=== PATIENT | female | born 1955 | race Caucasian/White ===

== ENCOUNTER 2018-06-02 09:14 | Inpatient (IN) | payer BC ==
[~2018-06-02] VITALS: Ht 162.6 cm; Wt 60.6 kg
--- NOTE | 2018-06-02 09:24 | NUR ---
PT BIB [facility] C/C RT KNEE PAIN S/P MECHANICAL FALL PLUMBER APPRENTICE PER MEDIC TRIPPED OVER HER LT FOOT PT HX OF RT BKA AWAITING FOR DR NANNETTE MCCARTNEY
--- NOTE | 2018-06-02 09:51 | NUR ---
PLEASE ENTER FULL NAMES OF GEOMETRY TEACHER/RN Patient data collected by (GEOMETRY TEACHER):LELA FARMER Assessment reviewed and completed by (RN):HOLLIS WOO
--- NOTE | 2018-06-02 10:09 | NUR ---
DR URIBE AT BEDSIDE TO BIB
--- NOTE | 2018-06-02 10:26 | NUR ---
TAKEN TO RADIOLOGY FOR XRAY
--- NOTE | 2018-06-02 10:58 | NUR ---
BACK FROM XRAY
[2018-06-02] MEDS ORDERED: NOVOLOG100 U/ML SC (12:16)
[2018-06-02] MEDS ORDERED: TRESIBA FL100 UNIT/1 SQ (12:17)
[2018-06-02 12:20] LABS: CALCIUM 8.2 mg/dL (8.5-10.1); CARBON DIOXIDE 27.9 mmol/L (21-32); POTASSIUM SERUM 4.2 mmol/L (3.5-5.1)
[2018-06-02 12:25] LABS: BILIRUBIN TOTAL 0.52 mg/dL (0.20-1.00); TOTAL PROTEIN, SERUM 6.8 g/dL (6.4-8.2)
[2018-06-02 12:28] LABS: ALBUMIN 3.2 g/dL (3.4-5.0)
[2018-06-02 12:31] LABS: BASOPHIL % 0.3 % (0-2); PLATELET COUNT 345 x10^3mcL (130-400); RED CELL DISTRIBUTION WIDTH 12.9 % (11.5-14.5)
--- NOTE | 2018-06-02 12:54 | NUR ---
PT ADMIT TO MS GAVE REPORT TO RASHEED ROOM 210W
[2018-06-02 13:09] LABS: CHOLESTEROL/HDL RATIO 2.5; MAGNESIUM 1.7 mg/dL (1.8-2.4); PHOSPHOROUS 4.5 mg/dL (2.5-4.9)
--- NOTE | 2018-06-02 13:28 | NUR ---
PATIENT ARRIVED TO FLOOR ON [facility] ACCOMPANIED BY MEDICAL LAB TECH INSTRUCTOR. PATIENT A/OX4, COMPLAINS OF 10/10 PAIN UPON MOVEMENT D/T RT FEMUR FX. NO PAIN WHEN RESTED. INSTRUCTED PATIENT ON USE OF CALL LIGHT TO CALL FOR STAFF. WILL ADMINISTER PRN ANALGESICS ONCE ORDERS COMPLETE, WILL ALSO NOTIFY DR MCCLAIN ABOUT POSSIBLE KUMAR INSERTION PATIENT HAS FEMUR FRACTURE.
[2018-06-02 13:29] LABS: T3 TOTAL 0.96 ng/mL
[2018-06-02 13:30] VITALS: BP 114/52
--- NOTE | 2018-06-02 13:37 | NUR ---
RECEIVED PT FROM ED VIA SAMMIE. ORIENTED PT TO ROOM AND SURROUNDINGS. IV NOTED TO RAC PATENT AND INTACT. INSTRUCTED PT ON THE USE OF CALL LIGHT FOR ASSISTANCE. ENDORSED PT TO PRIMARY NURSE RASHEED
--- NOTE | 2018-06-02 15:31 | NUR ---
ORDER TO PLACE A KUMAR IN. EXPLAINED TO PT THE PROCEDURE AND VERBALIZED UNDERSTANDING. KUMAR CATH PLACED IN ASEPTIC TECHNIQUE AND PT HAD TOLERATED PROCEDURE WELL.
--- NOTE | 2018-06-02 15:40 | NUR ---
PATIENT IN BED RESTING. PRN MORPHINE 2 MG IVP GIVEN TO PATIENT FOR HIP PAIN. KUMAR CATHETHER 10 HEBREW INSERTED, SERGEY URINE DRAINING. PRN NORCO PO GIVEN POST FC INSERTION. WILL CONTINUE TO MONITOR FOR PAIN. CALL LIGHT IN REACH, BED IN LOWEST POSITION.
[2018-06-02 16:40] LABS: microscopic required? YES; urine erythrocyte NEGATIVE (NEGATIVE)
[2018-06-02 16:48] LABS: AMPHETAMINE QUAL UR NONE DETECTED (See below)
--- NOTE | 2018-06-02 16:54 | NUR ---
PATIENT HAD X1 EPISODE OF VOMITTING. PRN ZOFRAN IVP GIVEN TO PATIENT. DR SAEED IN TO SPEAK W PATIENT ABOUT SURGERY TOMORROW AT 0900. PATIENT AGREES AND VERBALIZES UNDERSTANDING. CALL LIGHT IN REACH.
[2018-06-02 17:11] LABS: FREE T4 1.05 ng/dL (0.76-1.46); FREE THYROXINE INDEX 2.6 ug/dL (1.4-4.5); T4(THYROXINE) 7.5 ug/dL (4.7-13.3)
[2018-06-02 17:32] VITALS: BP 102/50
--- NOTE | 2018-06-02 18:35 | NUR ---
PATIENT HAD NO FURTHER EPISODES OF VOMITTING. PATIENT PAIN CONTROLLED AT THIS TIME. WILL ENDORSE TOMORROWS PROCEDURE TO ONCOMING NURSE, WILL NEED TO HAVE PATIENT NPO FOR PROCEDURE & HAVE CONSENT SIGNED. CALL LIGHT IN REACH.
--- NOTE | 2018-06-02 19:55 | NUR ---
RECEIVED PT IN BED RESTING WITH EYES CLOSED, ALERT AND ORIENTED, DENIES HEADACHE OR DIZZINESS, BREATHING EVEN AND UNLABORED, PT DE-SATS ON ROOM AIR WITH SPO2:87%, APPLIED PT TO 2.5 L VIA NC WITH SPO2 > 95%, LUNG SOUNDS DIMINISHED, DENIES CHEST PAIN, IVF INFUSING WELL, PULSES PALPABLE, NO EDEMA NOTED TO LLE, RT BKA, ABD SOFT WITH ACTIVE BS, NO BM AT THIS TIME, KUMAR VIA GRAVITY DRAINING SERGEY COLOR URINE, NO DISTRESS NOTED, WILL KEEP TO MONITOR.
[2018-06-02 20:21] VITALS: BP 109/50
--- NOTE | 2018-06-02 22:46 | NUR ---
DR BRITO MADE AWARE OF THAT PT IS SCHEDULED FOR ORIF IN AM BUT NO ORDER TO OBTAIN THE CONSENT, PER DR BRITO THAT DR SAEED WILL ORDER TO OBTAIN THE CONSENT IN AM, HE WILL ORDER NPO AFTER MN FOR NOW.
--- NOTE | 2018-06-03 05:38 | NUR ---
PT ASLEEP BUT EASILY AROUSABLE, SLEPT MOST OF NIGHT, MEDICATED WITH MORPHINE VIA IVP X 2 FOR RT FEMUR PAIN WITH GOOD RELIEF, IVF INFUSING WELL, MORNING BLODD SUGAR- 159 MG/DL, HOLD RISS [address] BRITO DUE TO PT IS NPO AT THIS TIME, NO DISTRESS NOTED, WILL KEEP TO MONITOR.
[2018-06-03 06:20] VITALS: BP 118/43
[2018-06-03 06:24] LABS: CALCIUM 8.3 mg/dL (8.5-10.1); CARBON DIOXIDE 24.9 mmol/L (21-32); CHLORIDE SERUM 106 mmol/L (98-107); CREATININE SERUM 0.9 mg/dL (0.6-1.0); GFR1 > 60 mL/min; GLUCOSE SERUM 158 mg/dL (74-106); POTASSIUM SERUM 4.2 mmol/L (3.5-5.1); SODIUM SERUM 141 mmol/L (136-145)
[2018-06-03 06:26] LABS: BASOPHIL % 0.1 % (0-2); PLATELET COUNT 264 x10^3mcL (130-400); RED CELL DISTRIBUTION WIDTH 13.1 % (11.5-14.5)
--- NOTE | 2018-06-03 06:51 | NUR ---
REPORT GIVEN TO ANA, ALL QUESTIONS ANSWERED AND CONCERNS ADDRESSED, CHG BATH GIVEN.
--- NOTE | 2018-06-03 07:18 | NUR ---
BEDSIDE HANDOFF REPORT DONE WITH WHITNEY-RN, ALL QUESTIONS ANSWERED AND CONCERNS ADDRESSED.
[2018-06-03 07:28] VITALS: BP 130/46
--- NOTE | 2018-06-03 07:30 | NUR ---
RECEIVED PT FROM CASE ASSEMBLER. PT AWAKE, ALERT. A/OX4. PT ON 2.5L O2 WITH DIMINISHED LUNGS SOUNDS NOTED. NO RESP DISTRESS. IV ACCES RAC INFUSISN NS AT 10ML/HR. C/D/I. ACTIVE BOWEL SOUNDS NOTED, NO APPARENT ISSUES WITH ELIMINATION, PERIPHERAL PULSES PALPABLE, NO EDEMA NOTED. PT COMPLAINS OF PAIN TO RIGHT LEG, 7/10. PT STATES TOLERABLE UNLESS SHE MOVES. SURGERY SCHEDULED FOR 0900, CONSENT SIGNED. OPERATIVE LEG MARKED. PT HAS KUMAR CATH WITH DARK SERGEY URINE NOTED. SAFETY MEASURES IN PLACE, BED LOW AND LOCKED. CALL LIGHT WITHIN REACH.
--- NOTE | 2018-06-03 09:30 | NUR ---
PT OFF THE FLOOR FOR PROCEDURE AT THIS TIME.
--- NOTE | 2018-06-03 12:15 | NUR ---
PT BACK FROM SURGERY. AWAKE, ALERT A/OX4. PT ON 2.5 L NC WITH NO RESP DISTRESS NOTED. VSS. PT DENIES MUCH PAIN AT THIS TIME. 05/18. PT STATES THE PAIN IS "MUCH BETTER" SINCE THE SURGERY. KAILYN BANDAGE WITH BRACE TO RIGHT LOWER EXTREMITY. PT DENIES NUMBNESS OR TINGLING. PT INSTRUCTED TO USE THE CALL LIGHT FOR ASSISTANCE OR IF PAIN INCREASES. VERBALIZED UNDERSTANDING. SAFETY MAINTAINED.
[2018-06-03 12:33] VITALS: BP 119/51
[2018-06-03 14:33] VITALS: BP 121/47
--- NOTE | 2018-06-03 16:59 | NUR ---
PT COMPLAINING OF PAIN 6/10 IN RIGHT LEG. MORPHINE ADMINISTERED ORDERED PRN (SEE EMAR). WILL CONT TO MONITOR.
--- NOTE | 2018-06-03 17:44 | NUR ---
PT REPORTS RELIEF FROM PAIN 3/10 IN RIGHT LEG AFTER MORPHINE ADMINISTRATION. NO ACUTE DISTRESS NOTED AT THIS TIME. SAFETY MAINTAINED.
--- NOTE | 2018-06-03 18:16 | NUR ---
PT STABLE AT THIS TIME. NO ACUTE DISTRESS OR DISCOMFORT NOTED AT THIS TIME. ALL NEEDS TENDED TO THROUGHOUT SHIFT. WILL CONTINUE TO MONITOR AND ENDORSE CARE TO GUARD DANCE HALL. SAFETY MEASURES MAINTAINED.
--- NOTE | 2018-06-03 19:05 | NUR ---
REPORT RECIEVED FROM DAY SHIFT RN. PATIENT WAS SEEN AND IS RESTING COMFORTABLE IN BED. ON 2LNC. BREATHING EVEN AND UNLABORED. NO SOB OR RESP DISTRESS NOTED. DENIES PAIN. DENIES CHEST PAIN. IV TO THE RAC INFUSING WELL. PATENT AND INTACT. NO REDNESS OR SWELLING. RIGHT BKA. RIGHT BRACE NOTED WITH KAILYN WRAP S/P ORIF, CDI. TRAPEZE BAR IN PLACE, KMUAR CATHETER IN PLACE DRAINING SERGEY URINE BY GRAVITY. COMFORT AND SAFETY MEASURES MAINTAINED. BED IS LOCKED AND IN THE LOWEST POSITION. SIDE RAILS UP X2. COMFORT AND SAFETY MEASURES MAINTAINED. CALL LIGHT IS WITHIN REACH. WILL CONTINUE TO MONITOR.
[2018-06-03 21:00] VITALS: BP 126/47
--- NOTE | 2018-06-04 03:00 | NUR ---
PATIENT IS RESTING COMFORTABLE IN BED WITH EYES CLOSED AT THIS TIME. NO DISTRESS NOTED. BREATHING EVEN AND UNLABORED ON 2L NC. CALL LIGHT IS WITHIN REACH. WILL CONTINUE TO MONITOR.
--- NOTE | 2018-06-04 05:25 | NUR ---
PATIENT SLEPT IN LONG INTERVALS THROUGHOUT THE NIGHT. NO ACUTE/SIGNIFICANT CHANGES NOTED. NO C/O PAIN THROUGHOUT THE NIGHT. DENIES CHEST PAIN. BREATHING EVEN ON 2L NC. NO SOB OR RESP DISTRESS NOTED. IV TO THE RAC. PATENT AND INTACT. NO REDNESS OR SWELLING NOTED. ALL NEEDS AND CONCERNS ADDRESSED. ALL SAFETY MEASURES MAINTAINED. COMFORT MEASURES MAINTAINED. CALL LIGHT IS WITHIN REACH. WILL ENDORSE CARE TO DAY SHIFT RN.
[2018-06-04 05:28] VITALS: BP 122/45
[2018-06-04 06:36] LABS: BASOPHIL % 0.3 % (0-2); PLATELET COUNT 217 x10^3mcL (130-400); RED CELL DISTRIBUTION WIDTH 13.4 % (11.5-14.5)
[2018-06-04 07:02] LABS: CARBON DIOXIDE 25.1 mmol/L (21-32); CHLORIDE SERUM 104 mmol/L (98-107); CREATININE SERUM 0.9 mg/dL (0.6-1.0); GFR1 > 60 mL/min; GLUCOSE SERUM 240 mg/dL (74-106); POTASSIUM SERUM 4.4 mmol/L (3.5-5.1); SODIUM SERUM 138 mmol/L (136-145)
--- NOTE | 2018-06-04 07:35 | NUR ---
PATIENT RESTING IN BED, PT DENIES PAIN AT THIS TIME. NO ACUTE DISTRESS NOTED, ON 2L NC. KUMAR CATHETER DRAINING TO GRAVITY. WEAKNESS NOTED TO RLE, RIGHT BKA, WHEELCHAIR BOUND. TRAPEZE BAR IN PLACE. DRESSING NOTED TO RLE, DRESSING CDI. NS IV INFUSING TO RAC AT 10ML/HR, IV SITE CDI, NO REDDNESS, SWELLING OR PAIN NOTED. CALL LIGHT WITHIN REACH, BED IN LOW POSITION, FOR SAFETY PRECAUTION. WILL CONTINUE TOO MONITOR FOR CHANGES.
[2018-06-04 07:42] VITALS: BP 106/45
--- NOTE | 2018-06-04 08:21 | NUR ---
PATIENT C/O MOD PAIN 05/18 TO RIGHT EXTREMITY, MEDICATED PATIENT WITH NORCO PER PROTOCOL (SEE EMAR),AND REPOSITION PATIENT. WILL CONTINUE TO MONITOR AND MANAGE PATIENT PAIN. CALL LIGHT WITHIN REACH, BED IN LOW POSITION FOR SAFETY PRECAUTION.
--- NOTE | 2018-06-04 09:20 | NUR ---
PHYSICAL THERAPY AT BEDSIDE.
--- NOTE | 2018-06-04 12:23 | NUR ---
PATIENT C/O MOD PAIN TO RIGHT LOWER EXTREMITY, MEDICATED PATIENT WITH NORCO PER PROTOCOL (SEE EMAR). REPOSITION PATIENTS RLE FOR COMFORT. CALL LIGHT WITHIN REACH, BED IN LOW POSITION. WILL CONTINUE TO MONIOTR FOR CHANGES.
--- NOTE | 2018-06-04 14:25 | NUR ---
FAMILY AT BEDSIDE. NO ACUTE DISTRESS NOTED. PATIENT ON 2L NC, PATIENT DENIES SOB. DENIES PAIN AT THIS TIME. CALL LIGHT WITHIN REACH, BED IN LOW POSITION. WILL CONTINUE TO MONITOR PATIENT.
[2018-06-04 15:31] VITALS: BP 107/45
--- NOTE | 2018-06-04 17:50 | NUR ---
PATIENT RESTING IN BED, NO ACUTE DISTRESS NOTED. PATIENT DENIES PAIN AT THIS TIME. NO SOB NOTED PATIENT ON 2L NC. KUMAR CATHETER DRAINING TO GRAVITY. DRESSING TO RLE CDI, NO DRAINAGE NOTED. NS IV INFUSING TO RAC AT 10ML/HR. CALL LIGHT WITHIN REACH, BED IN LOW POSITION. WILL CONTINUE TO MONITOR PATIENT.
--- NOTE | 2018-06-04 19:41 | NUR ---
RECEIVED PATIENT IN BED AWAKE, ALERT AND ORIENTED WITH NO SIGN OF ACUTE DISTRESS, BREATHING EASY AND NONLABOR ON O2 AR 2L VIA NC SATTING AT96%. KUMAR TO GRAVITY WITH YELLOW URINE OUTPUT IN SMALL AMOUNT, EMPTIED BY AM SHIFT. IV TO RAC INTACT AND INFUSING WELL. INCISION WITH SUTURES/STAPLE TO RT THIGH DRESSING CDI. WILL CONTINUE TO MONITOR, DENIES POST OPERATIVE PAIN AT THIS TIME. WILL CONTINUE TO MONITOR. CALL LIGHT WITHIN REACH.
[2018-06-04 20:25] VITALS: BP 133/49
--- NOTE | 2018-06-05 00:19 | NUR ---
C/O LEG PAIN AT SCALE 6/10 PER PATIENT , MEDICATED WITH NORCO 1 TAB PO PRESCRIBED. WILL CONTINUE TO MONITOR.
--- NOTE | 2018-06-05 02:09 | NUR ---
APPEARS SLEEPING THIS TIME AFTER PAIN MEDS WAS GIVEN. WILL CONTINUE TO MONITOR.
--- NOTE | 2018-06-05 05:07 | NUR ---
SLEPT AT LONG INTERVALS C/O POST OPERATIVE PAIN X1 THE ENTIRE SHIFT AND MEDICATED PRESCRIBED. ALL NEEDS ATTENDED. DRESSING TO RT THIGH CDI.
[2018-06-05 05:26] VITALS: BP 128/49
[2018-06-05 06:20] LABS: BASOPHIL % 0.3 % (0-2); PLATELET COUNT 210 x10^3mcL (130-400); RED CELL DISTRIBUTION WIDTH 13.3 % (11.5-14.5)
[2018-06-05 06:45] LABS: CALCIUM 8.1 mg/dL (8.5-10.1); CARBON DIOXIDE 26.9 mmol/L (21-32); CHLORIDE SERUM 103 mmol/L (98-107); CREATININE SERUM 0.8 mg/dL (0.6-1.0); GFR1 > 60 mL/min; GLUCOSE SERUM 292 mg/dL (74-106); MAGNESIUM 1.9 mg/dL (1.8-2.4); PHOSPHOROUS 2.6 mg/dL (2.5-4.9); POTASSIUM SERUM 5.5 mmol/L (3.5-5.1); SODIUM SERUM 136 mmol/L (136-145)
--- NOTE | 2018-06-05 07:20 | NUR ---
RECEIVED PT. IN BED A/A/O X3. NO SOB, NO N/V NOTED. PT. DENIES ANY PAIN AT THIS TIME. NS RUNNING AT 10 CC/HR VIA IV SITE AT R AC. R BKA WRAPPED IN KAILYN-BANDAGE WITH IMMOBILIZER IN PLACE. F/C DRAINING SERGEY URINE. BED IN LOW POS., CALL LIGHT WITHIN REACH. SIDE RAILS UP X3.
[2018-06-05 10:24] VITALS: BP 126/51
--- NOTE | 2018-06-05 11:00 | NUR ---
CALLED AND REPORTED URINE CULTURE RESULT TO DR. MCCLAIN. ALSO REPORTED K (5.5) TO DR. MCCLAIN. NO FURTHER ORDER RECEIVED AT THIS TIME.
--- NOTE | 2018-06-05 13:00 | NUR ---
NEW IV SITE RESTARTED AT R FA WITH GAUGE #20 DUE TO DISLODGEMENT OF OLD IV H/L.
--- NOTE | 2018-06-05 15:00 | NUR ---
F/C REMOVED PER PHYSICIAN'S ORDER.
[2018-06-05 18:19] VITALS: BP 132/52
--- NOTE | 2018-06-05 19:00 | NUR ---
REMAINS IN STABLE CONDITION AT THIS TIME. WILL CONTINUE TO MONITOR.
--- NOTE | 2018-06-05 19:38 | NUR ---
RECEIVED PATIENT IN BED AWAKE, ALERT AND ORIENTED WITH NO C/O POST OPERATIVE PAIN AT THIS TIME. BREATHINGEASY AND NONLABOR SATTING AT 96% ON O2 AT 2L VIA NC. MEDSURG PATIENT. PATIENT ON HEPARIN 5000 UNITS SQ. DRESSING TO LLE CLEAN DRY AND INTACT. IV TO RFA INTACT AND INFUSING WELL. WILL CONTINUE TO MONITOR.
[2018-06-05 21:00] VITALS: BP 135/57
--- NOTE | 2018-06-05 21:10 | NUR ---
C/O POST OPERATIVE PAIN AT SCALE OF 8/10 PER PATIENT. NORCO 1 TAB PO PRESCRIBED. WILL CONTINUE TO MONITOR.
--- NOTE | 2018-06-06 01:35 | NUR ---
APPEARS SLEEPING THIS TIME, BREATHING EASYA ND NONLABOR. WILL CONTINUE TO MONITOR.
[2018-06-06 05:05] VITALS: BP 108/55
--- NOTE | 2018-06-06 05:07 | NUR ---
SLEPT AT LONG INTERVALS, C/O POST OPERATIVE PAIN X1 THE ENTIRE SHIFT AND MEDICATED PRESCRIBED. ALL NEEDS ATTENDED.
[2018-06-06 06:33] LABS: BASOPHIL % 0.4 % (0-2); PLATELET COUNT 271 x10^3mcL (130-400); RED CELL DISTRIBUTION WIDTH 12.9 % (11.5-14.5)
[2018-06-06 07:31] LABS: CALCIUM 8.2 mg/dL (8.5-10.1); CARBON DIOXIDE 28.5 mmol/L (21-32); CHLORIDE SERUM 102 mmol/L (98-107); CREATININE SERUM 0.7 mg/dL (0.6-1.0); GFR1 > 60 mL/min; GLUCOSE SERUM 115 mg/dL (74-106); POTASSIUM SERUM 4.3 mmol/L (3.5-5.1); SODIUM SERUM 137 mmol/L (136-145)
--- NOTE | 2018-06-06 08:07 | NUR ---
A+OX4, NO RESPIRATORY DSITRESS NOTED, MEDSURG, PULSES MODERATE AND EQUAL SHALOM, NO EDEMA NOTED, RECEIVING HEPARIN SQ, LUNG SOUNDS CTA, 2L NC, BOWEL SOUNDS ACTIVE, VOIDING FREELY, GENERALIZED WEAKNESS, RBKA, TRAPEZE BAR ON BED, 4 INCISIONS WITH SUTURE, DAVID, AND KERLIX TO R FEMUR WITH BRACE AND KAILYN WRAP, CDI, SCAB TO LLE SUNSHINE, IV IN RFA WITH NS @ 10 ML/HR, SITE WNL, RBC 2.57, H/H 8.1/23, BUN 19.0.
--- NOTE | 2018-06-06 10:39 | NUR ---
PT RESTING IN BED, NO RESPIRATORY DISTRESS NOTED, DENIES PAIN, STATES SHE WORKED WITH PHYSICAL THERAPY EARLIER, CALL LIGHT WITHIN REACH.
[2018-06-06 10:51] VITALS: BP 115/50
--- NOTE | 2018-06-06 12:09 | NUR ---
PT RESTING IN BED, NO RESPIRATORY DSITRESS NOTED, DENIES PAIN, CALL LIGHT WITHIN REACH.
--- NOTE | 2018-06-06 14:47 | NUR ---
ASSISTED PT ON BED LEVINE, NO RESPIRATORY DSITRESS NOTED, STATES PAIN IS TOLERABLE AT THIS TIME, CALL LIGHT WITHIN REACH.
--- NOTE | 2018-06-06 16:18 | NUR ---
PT COMPLAINING OF RLE 10/10 PAIN, REQUESTING NORCO, NORCO PO GIVEN, NO RESPRIATORY DISTRESS NOTED, CALL LIGHT WITHIN REACH.
--- NOTE | 2018-06-06 16:29 | NUR ---
PHYSICAL THERAPY DAILY NOTES CO-SIGN All documentation done by the Surgical Services Asst for 06/06/18 has been reviewed. I agree with the documentation. Reviewed/Co-Signed by: Yudith Glynn PT Documentation Done by:WILLOW ALVARADO PTA
[2018-06-06 17:38] VITALS: BP 115/52
--- NOTE | 2018-06-06 19:21 | NUR ---
ENDORSED CARE TO SAMEER ROBISON.
--- NOTE | 2018-06-06 19:30 | NUR ---
RECEIVED PT IN BED RESTING.BREATHING EVEN AND UNLABORED.DENIES ANY PAIN TA THIS TIME.S/P ORIF TO RIGHT FEMUR. 4 INCISIONS WITH SUTURES DAVID- KERLIX,KAILYN WRAP AND BRACE. SMALL DRY SCAB LLE.RIGHT BKA. USES TRAPEZE BAR.IV SITE PATENT AND INTACT.BED IN LOWEST POSITION,CALL LIGHT WITHIN REACH. WILL CONTINUE TO [facility].
[2018-06-06 21:30] VITALS: BP 139/57
--- NOTE | 2018-06-07 05:20 | NUR ---
PT APPEARS TO BE SLEEPING. NO DISTRESS NOTED. NO C/O PAIN AT THIS TIME. BED IN LOWEST POSIITON,CALL LIGHT WITHIN REACH. WILL CONTINUE TO MONITOR.
[2018-06-07 06:07] VITALS: BP 141/61
--- NOTE | 2018-06-07 07:21 | NUR ---
CARE ENDORSED TO DAY NURSE TARAN.
[2018-06-07 08:59] VITALS: BP 141/52
--- NOTE | 2018-06-07 12:22 | NUR ---
PT RESTING IN BED, NO RESPRIATORY DSITRESS NOTED, COMPLAINING OF 9/10 RLE PAIN, NORCO PO GIVEN, CALL LIGHT WITHIN REACH.
--- NOTE | 2018-06-07 12:24 | NUR ---
PT OFF NC, NOW TOLERATING RA O2 SAT 95%, NO RESPRIATORY DSITRESS NOTED.
[2018-06-07 12:31] VITALS: BP 141/52
--- NOTE | 2018-06-07 12:49 | NUR ---
PT STATES SHE IS AGREEABLE TO DC TODAY BUT WILL NOT HAVE A RIDE UNTIL AFTER 3PM/
[2018-06-07 13:05] VITALS: Ht 162.6 cm; Wt 60.6 kg
--- NOTE | 2018-06-07 14:08 | NUR ---
PT RESTING IN BED WITH BOTH EYES CLOSED, APPEARS TO BE SLEEPING, NO RESPRIATORY DISTRESS NOTED, CALL LIGHT WITHIN REACH.
--- NOTE | 2018-06-07 15:24 | NUR ---
PER KELLY CASE MGMT, HOME HEALTH STILL BEING ARRANGED, AND PT NOT CLEAR FOR DC YET.
--- NOTE | 2018-06-07 15:49 | NUR ---
ASSISTED PT FROM CHAIR TO BED, NO RESPIRATORY DSITRESS NOTED, DENIES PAIN, CALL LIGHT WITHIN REACH.
--- NOTE | 2018-06-07 17:06 | NUR ---
PT GIVEN DC INSTRUCTIONS AND VERBALIZED UNDERSTANDING, IV REMOVED WITH CATHETER INTACT, NO SWELLING OR ERYTHEMA AT SITE, PRESSURE PLACED ON SITE, GAUZE AND TAPE PLACED ON SITE. 4 INCISIONS TO R FEMUR DRESSING CHANGED WITH NON ADHERENT PADS, GAUZE, WRAPPED IN KERLIX, KAILYN WRAP AND BRACE. PT REFUSED ACCUCHECK AND STATES SHE WILL CHECK HER BLOOD SUGAR AT HOME.
--- NOTE | 2018-06-07 17:10 | NUR ---
PT INSTRUCTED TO MAKE FOLLOW UP APPT WITH DR SAEED FOR JUNE 14. PT VERBALIZED UNDERSTANDING. CIGAR MAKING SUPERVISOR ASSISTED PT TO DRESS IN OWN CLOTHES. PT OFF UNIT VIA WHEELCHAIR WITH ALL BELONGINGS ESCORTED BY CIGAR MAKING SUPERVISOR AND SISTER.
--- NOTE | 2018-06-08 07:02 | NUR ---
PHYSICAL THERAPY DAILY NOTES CO-SIGN All documentation done by the Social Work Assistant for 06/08/18 has been reviewed. I agree with the documentation. Reviewed/Co-Signed by: Yudith Glynn PT Documentation Done by:MARY ELLEN THAPA [facility]
== END 2018-06-07 17:11 | disposition home health service (06) | DRG 481 ==
LOC: ED 09:14 → MU 12:32
PROVIDERS: Emergency Medicine; Neuromusculoskeletal Medicine, Sports Medicine; ADMIT General Practice
PROC: 0QS804Z Reposition Right Femoral Shaft with Internal Fixation Device, Open Approach (ICD-10-PCS; principal; 2018-06-03 09:30)
DX: S72.401A Unspecified fracture of lower end of right femur, initial encounter for closed fracture (principal); J96.10 Chronic respiratory failure, unspecified whether with hypoxia or hypercapnia; E11.65 Type 2 diabetes mellitus with hyperglycemia; E87.5 Hyperkalemia; E11.42 Type 2 diabetes mellitus with diabetic polyneuropathy; E86.0 Dehydration; E83.42 Hypomagnesemia; W18.39XA Other fall on same level, initial encounter; Y93.89 Activity, other specified; Y92.89 Other specified places as the place of occurrence of the external cause; Y99.8 Other external cause status; Z88.2 Allergy status to sulfonamides; Z89.511 Acquired absence of right leg below knee; Z90.49 Acquired absence of other specified parts of digestive tract; Z98.42 Cataract extraction status, left eye; Z98.41 Cataract extraction status, right eye
CPT/HCPCS: 82962; 83880; 84439; 90658; 97110-GP; 97116-GP; 97530-GP; C1713; J0690; J1644; J1815; J2175; J2250; J2270; J2405; J3010; J3490; J7030; Q0092; Q0162